=== PATIENT | male | born 1980 | race Caucasian/White ===

== ENCOUNTER 2021-08-01 13:26 | Emergency (ER) | payer BC, SELFPAY ==
--- NOTE | ~2021-08-01 | XR_ITS ---
EXAMINATION: XR chest 1V portable Exam Date/Time: 08/01/2021 13:50 CDT HISTORY: fever, nonproductive cough x2 days Comparison: None available. RESULT: Lines, tubes, and devices: None. Lungs and pleura: Ill-defined patchy groundglass opacities in the bilateral lower lungs. Cardiomediastinal silhouette: Stable cardiomediastinal silhouette. Other: No acute osseous or upper abdominal finding. IMPRESSION: Pulmonary opacities may reflect atypical/viral infection in the appropriate clinical context. Reviewed, dictated and finalized at location K. IMPRESSION: Pulmonary opacities may reflect atypical/viral infection in the appropriate cli nical context.
[2021-08-01 13:32] VITALS: BP 109/59; PULSE 119; RESP 18; TEMP 37.9; O2SAT 99
[2021-08-01 13:39] VITALS: O2SAT 100
[2021-08-01 13:45] VITALS: O2SAT 99
--- NOTE | 2021-08-01 13:45 | ED.URI ---
HPI - URI/Sore Throat General Chief Complaint: Fever Stated Complaint: headache, sore throat Time Seen by Provider: 08/01/21 13:36 Source: patient Mode of arrival: ambulatory Limitations: no limitations History of Present Illness HPI Narrative: This is a 40-year-old male that presents to the emergency department for cold symptoms present since this morning. Reports fever, cough, sore throat, and headache. He took ibuprofen a couple hours prior to arrival. Denies shortness of breath. Related Data Allergies Allergy/AdvReac Type Severity Reaction Status Date / Time No Known Allergies Allergy Unverified 12/10/11 12:55 Review of Systems Review of Systems: CONSTITUTIONAL: Reports fever ENT: Reports congestion, sore throat, and otalgia. RESPIRATORY: Reports cough. Denies dyspnea. All systems reviewed & are unremarkable except as noted in HPI and below PMFSH Past Medical History Medical History (Updated 08/01/21 @ 15:18 by Jaja Poe PA-C) No active medical problems Family History Family History (Updated 09/10/15 @ 23:19 by DOCTOR UNKNOWN) Father Family history of diabetes mellitus in first degree relative Other Family history of malignant neoplasm Family history of pancreatic cancer Social History Social History Smoking status: Smoker, status unknown Alcohol intake: current Exam Narrative: GENERAL: Well-appearing, well-nourished, and in no acute distress. HEAD: Normocephalic, atraumatic. EYES: EOMI. ENT: Nares clear, no rhinorrhea or epistaxis. Mucous membranes moist. Oropharynx with erythema, without tonsillar hypertrophy exudate or other lesions. Bilateral TMs pearly chiu non-bulging NECK: Supple. No adenopathy or masses. CHEST: Clear to auscultation. No respiratory distress. No wheezes rales or rhonchi HEART: Regular rate and rhythm. No murmur heard. Normal peripheral pulses. EXTREMITIES: Normal range of motion. No edema. SKIN: Warm, dry, no rash. NEURO: No focal deficits. Alert and oriented x3. PSYCH: Normal mood and affect Course Vital Signs Vital signs: Vital Signs Temperature 100.2 F H 08/01/21 13:32 Pulse Rate 119 H 08/01/21 13:32 Respiratory Rate 18 08/01/21 13:32 Blood Pressure 109/59 L 08/01/21 13:32 Pulse Oximetry 99 08/01/21 13:32 Oxygen Delivery Room Air 08/01/21 13:32 Temperature 100.2 F H 08/01/21 13:32 Pulse Rate 112 H 08/01/21 14:01 Respiratory Rate 16 08/01/21 14:01 Blood Pressure 112/72 08/01/21 14:01 Pulse Oximetry 100 08/01/21 14:01 Oxygen Delivery Room Air 08/01/21 13:32 MDM - URI/Sore Throat MDM Narrative Medical decision making narrative: Patient presents to the emergency department for cold symptoms present since this morning. Patient febrile upon arrival, given dose of antipyretic. Also mildly tachycardic. This improved with treatment of fever. His oxygen saturation has remained normal on room air. Lungs are clear on exam. Patient's influenza screen was negative. Strep culture was sent. Patient's COVID test was positive. Chest x-ray shows possibly a developing viral pneumonia. Patient was updated on case findings. Will be started on oral antiviral. He is to have follow-up with his primary care doctor. He was given warnings to return to the ER Lab Data Attestation: I reviewed the patient's lab results. Labs: Lab Results 08/01/21 Range/Units 13:47 Influenza A (RT-PCR) Negative (Negative) Influenza B (RT-PCR) Negative (Negative) SARS-CoV-2 RNA (RT-PCR) Positive A Imaging Data Radiologist's impression: ITS Impressions Chest X-Ray 08/01/21 14:20 IMPRESSION: Pulmonary opacities may reflect atypical/viral infection in the appropriate clinical context. Critical Care Time Critical Care Time Critical Care Time: No Discharge Plan Discharge Clinical Impression: Pneumonia due to COVID-19 virus Patient Disposition: Home, Self-Care Condition: Stable
[2021-08-01] MEDS: ACETAMINOPHEN 500 MG TABLET 1000 MG PO (13:51)
[2021-08-01 14:00] VITALS: O2SAT 100
[2021-08-01 14:01] VITALS: BP 112/72; PULSE 112; RESP 16; O2SAT 100
[2021-08-01 14:39] LABS: Influenza A QL RT-PCR Negative (Negative); Influenza B QL RT-PCR Negative (Negative); SARS-CoV-2 RNA PCR Positive
[2021-08-01 15:30] VITALS: BP 144/86; PULSE 100; RESP 17; O2SAT 98
== END 2021-08-01 15:47 | disposition home or self-care (01) ==
PROVIDERS: Emergency Provider Emergency Medicine; PCP Family Medicine
DX: U07.1 COVID-19 (principal); J12.82 Pneumonia due to coronavirus disease 2019
CPT/HCPCS: 71045; 87081; 87502; 99283; A9270; C9803; U0003; U0005